=== PATIENT | female | born 1945 | race Caucasian/White ===

== ENCOUNTER → 2016-05-23 | Outpatient (CLI) | payer OTHER, BC ==
--- NOTE | 2016-05-23 15:18 | DIAGNOSTIC IMAGING REPORT ---
SINGLE VIEW PELVIS CLINICAL HISTORY: Fall several days ago with right pelvic pain. FINDINGS: An AP pelvic radiograph is obtained. No prior studies are available for comparison at the time of dictation. The skeletal structures are osteopenic. There is no radiographic evidence of fracture in the hips or bony pelvis. Mild arthritic change and joint space narrowing is seen in the hips. The sacroiliac joints appear preserved. Small enthesophytes arise from the greater trochanter of the left femur and the anterior superior iliac spine bilaterally. Lumbosacral spondylosis and mild scoliosis is partially imaged. The overlying soft tissues are normal in appearance. There is a nonobstructed abdominal bowel gas pattern. IMPRESSION: No fracture is seen in the hips or pelvis. Electronically signed by: Jaylon Acosta M.D. 05/23/2016 3:17 PM Dictated Date/Time: 05/23/2016 3:16 PM
== END | disposition home or self-care (01) ==
LOC: C.RAD 14:22
PROVIDERS: ATTEND Family Medicine
DX: M79.604 Pain in right leg (principal)

== ENCOUNTER → 2016-08-30 | Outpatient (CLI) | payer OTHER, BC ==
--- NOTE | 2016-08-30 13:29 | MAMMOGRAPHY REPORT ---
BILATERAL DIGITAL SCREENING MAMMOGRAM WITH CAD: 08/30/2016 CLINICAL HISTORY: Routine screening. Patient has no complaints. TECHNIQUE: Bilateral CC and MLO views were obtained. Current study was also evaluated with a Compute r Aided Detection (CAD) system. COMPARISON: Comparison is made to exams dated: 08/28/2015 mammogram, 08/26/2014 mammogram, 08/23/2013 m ammogram, 08/21/2012 mammogram, 08/15/2011 mammogram, and 08/06/2010 mammogram - [facility] nter. BREAST COMPOSITION: The tissue of both breasts is heterogeneously dense, which may obscure small mas ses. FINDINGS: The parenchymal pattern is unchanged. There are a few scattered stable benign-appearing m icrocalcifications. No developing mass, architectural distortion or cluster of suspicious microcalci fications is seen in either breast. IMPRESSION: ACR BI-RADS CATEGORY 2: BENIGN There is no mammographic evidence of malignancy. A 1 year screening mammogram is recommended. The pa tient will receive written notification of the results. Approximately 10% of breast cancers are not detected with mammography. A negative mammographic report should not delay biopsy if a clinically suggestive mass is present. Alondra Lees M.D. ay/:08/30/2016 10:15:53 Ring Maker: Tiara DIEHL(R)(M), [facility] letter sent: Normal 1/2 BI-RADS Code: ACR BI-RADS Category 2: Benign
== END | disposition home or self-care (01) ==
LOC: C.MAMM 09:06
PROVIDERS: ATTEND Family Medicine
DX: Z12.31 Encounter for screening mammogram for malignant neoplasm of breast (principal)